=== PATIENT | male | born 1955 ===

== ENCOUNTER 2017-06-04 06:10 | Day surgery (SDC) | payer BC ==
[2017-05-25 09:50] VITALS: BMI 39.5
--- NOTE | 2017-06-02 07:06 | HP ---
REASON FOR ADMISSION: Left heart catheterization, possible angioplasty, abnormal stress test and anteroseptal ischemia, ejection fraction of 63%. BRIEF CLINICAL HISTORY: This is a 61-year-old male with past medical history significant for obesity, body mass index 40 kg/m2, diabetes, hypertension, hyperlipidemia, history of non-STEMI and history of multiple stents, admitted electively for left heart cath and possible angioplasty. PAST MEDICAL HISTORY: Significant for multiple stents, non-STEMI, 07/16/2013, PTCA of LAD and then the patient had acute coronary syndrome, on 07/23/2015 PTCA of RCA was done. Repeat catheterization on 11/17/2015 after ACS monitored, medical treatment recommended. PREVIOUS CARDIAC WORKUP: As follows: The patient had a recent stress test dated 05/11/2017 that showed abnormal myocardial perfusion study, ejection fraction 67%, apical anteroseptal reversible ischemia. The patient had echocardiography on 07/21/2015 that showed normal ejection fraction 50% to 55%, [id number]-rd-[id number] hypokinesis of anterior wall, no aortic stenosis, mild mitral regurgitation, trace tricuspid regurgitation, RV systolic pressure of 24. Last catheterization was on 11/22/2015 that showed nonobstructive coronary artery disease limited in the in mid circumflex diffusely 55%, but no focal flow-limiting stenosis noted. Patent stent in mid LAD and patent stent in mid RCA noted, preserved LV function ejection fraction of 60% to 65%. Prior to that, the patient had, after non-STEMI dated 07/22/2013, PTCA of LAD was done. After that, the patient admitted with acute coronary syndrome on 07/22/2015, mid RCA stent was done. OTHER MEDICAL CONDITION: Diabetes, hypertension, hyperlipidemia and obesity. CURRENT MEDICATIONS: The patient is taking aspirin 81 mg daily, valsartan 320 mg daily, metoprolol 50 mg, metformin 1 g, glipizide 10, clopidogrel and Lipitor 80 mg daily. REVIEW OF SYSTEMS: As per HPI. PHYSICAL EXAMINATION: As follows: VITAL SIGNS: Temperature afebrile, heart rate 60, blood pressure 130/80, height is 5 feet 8 inches, weight of the patient 260, body mass index 39.5 kg/m2. HEENT: PERRLA intact. NECK: Supple. No carotid bruits. No thyromegaly. CHEST: Clear to auscultation. HEART: S1 and S2 regular. ABDOMEN: Soft. EXTREMITIES: Clubbing and cyanosis negative. LABORATORY DATA: Not available. IMPRESSION AND PLAN: Abnormal stress test, diabetes, hypertension, hyperlipidemia, history of coronary disease, history of multiple stents LAD after acute coronary syndrome, [id number] myocardial infarction on 07/22/2013, history of PTCA of RCA on 07/23/2015. Recent stress test is abnormal. The patient is scheduled for elective cardiac catheterization and possible angioplasty. We will load with aspirin and Plavix. The patient agreed. We will proceed for cardiac catheterization. Further recommendation after the cardiac catheterization. Thank you Dr. Keith for providing us the opportunity in taking care of the patient, Ab Barkley. I will follow with you. Sha Melvin MD
[2017-06-04] MEDS ORDERED: Phenylephrine 10 mg/ml Inj ONE (06:48)
[2017-06-04] MEDS ORDERED: Iodixanol 320 MG/ML 200 ML BOTTLE IV ONE (06:48)
[2017-06-04] MEDS ORDERED: Lidocaine 2% Inj (20ml) ONE (06:48)
[2017-06-04] MEDS ORDERED: Iodixanol 320 MG/ML 100 ML BOTTLE IV ONE (06:48)
[2017-06-04] MEDS ORDERED: Iohexol 350mgl/ml 50 ML ONE (06:48)
[2017-06-04] MEDS ORDERED: Nitroglycerin 50mg in D5W 50 MG/250 ML BOTTLE IV ONE (06:49)
[2017-06-04 06:52] LABS: BASO # 0.07 K/mm3 (0.0-2.0); BASO % 1.1 % (0.0-3.0); EOS # 0.2 (0.0-0.7); EOS % 3.6 % (1.5-5.0); GRAN # 3.87 (1.4-6.5); GRAN % 59.8 % (50.0-68.0); HEMATOCRIT 42.8 % (42.0-52.0); LYMPH # 1.7 (1.2-3.4); LYMPH % 26.7 % (22.0-35.0); MEAN CELL VOLUME 79.1 fl (80.0-105.0); MEAN CORPUSCULAR HEMOGLOBIN 25.5 pg (25.0-35.0); MEAN CORPUSCULAR HGB CONC 32.2 g/dl (31.0-37.0); MEAN PLATELET VOLUME 10.8 fl (7.0-11.0); MONO # 0.6 (0.1-0.6); MONO % 8.8 % (1.0-6.0); RED CELL DISTRIBUTION WIDTH 15.1 % (11.5-14.5); WHITE BLOOD COUNT 6.5 10^3/ul (4.5-11.0)
[2017-06-04 06:59] LABS: PARTIAL THROMBOPLASTIN TIME 27.7 Seconds (23.7-30.8)
[2017-06-04] MEDS ORDERED: Midazolam 2 MG/2 ML VIAL ONE ×2 (07:02→08:11)
[2017-06-04 07:18] LABS: BLOOD UREA NITROGEN 13 mg/dL (7-21); CALCIUM 9.1 mg/dL (8.4-10.5); CARBON DIOXIDE 26 mmol/L (21-33); CHLORIDE 105 mmol/L (95-110); CHOLESTEROL 95 mg/dL (130-200); GFR AFRICAN-AMERICAN > 60; GLUCOSE,RANDOM 248 mg/dL (70-110); SODIUM 142 mmol/L (132-148)
[2017-06-04] MEDS ORDERED: Sodium Chloride 0.9% 1,000 ML IV SCH (09:00)
[2017-06-04 09:20] VITALS: TEMP 97.5; O2SAT 99
[2017-06-04 14:15] VITALS: RESP 17
[2017-06-04 14:16] VITALS: BP 134/70; PULSE 68
--- NOTE | 2017-06-04 15:09 | CARD ---
APPROVED REPORT EKG Measurement Heart [id number] [place] [id number] <Conclusion> Sinus bradycardia Left anterior Mane-Block. Right bundle branch block
--- NOTE | 2017-06-04 17:07 | CARD ---
APPROVED REPORT Procedure(s) performed: Left Heart Catheterization HISTORY The patient is a 61 year-old male with a history of : previous AL (> 7 days), most recent EF: 63%. (EF Method: RADIONUCLIDE), previous CHF, diabetes mellitus with oral treatment , previous diagnostic cath, previous PCI (The PCI date was 07/23/2015), hypertension , dyslipidemia , Had PTCA of LAD in 2012 and RCA 2014, had abnormal stress test . INDICATION The indication(s) include : positive stress test. CASE TECHNIQUE The patient was brought electively to the Cardiac Catheterization Laboratory in a fasting state and was prepped and draped in a sterile manner. The right femoral groin was infiltrated with 2% Lidocaine subcutaneous anesthesia. A 6 Fr x 11 cm Niyah sheath was inserted into the right femoral artery without difficulty. Coronary angiography was performed using coronary diagnostic catheters. The left coronary system was accessed and visualized with a Diagnostic ,6 Fr JL 4 catheter. The right coronary system was accessed and visualized with a Diagnostic ,6 Fr JR 4 catheter. The left ventricle was accessed and visualized with a 6 Fr Pigtail catheter. Left ventricular/Aortic Valve gradient assessed on pullback. Left ventriculogram was performed in ZHU projection. The patient tolerated the procedure well and there were no complications associated with the procedure. Vessel Analysis The patient's coronary anatomy is right dominant. The left main coronary artery is a large size vessel with diffuse calcification noted throughout this vessel and without significant stenosis. The left main trifurcates to the left anterior descending, circumflex, and ramus. The left anterior descending artery is a medium size vessel with diffuse calcification noted throughout this vessel and without significant stenosis. Patent stent in Mid and distal RCA There is a 55% stenosis in the mid segment. The first diagonal branch is a medium size vessel with diffuse calcification noted throughout this vessel and without significant stenosis. The circumflex artery is a small size vessel with diffuse calcification noted throughout this vessel and without significant stenosis. There is a 40% stenosis in the mid segment. The first obtuse marginal branch is a small size vessel with diffuse calcification noted throughout this vessel and without significant stenosis. The ramus intermedius artery is a medium size vessel with diffuse calcification noted throughout this vessel and without significant stenosis. The right coronary artery is a large size vessel with diffuse calcification noted throughout this vessel and without significant stenosis. Patent stent noted in mid segment The right posterior descending artery is a large size vessel with diffuse calcification noted throughout this vessel and without significant stenosis. The right posterolateral branch is a medium size vessel with diffuse calcification noted throughout this vessel and without significant stenosis. Left Ventricle The left ventricle is normal in size with normal contractility. There was no cardiomyopathy. The left ventricular ejection fraction is estimated to be 55-60%. The left ventricular end diastolic pressure is 25-30 mmHg. with respiratory variation There was no gradient across the aortic valve upon pullback. Conclusion Non Obstructive CAD Patent stents in MId and Distal LAD Mid LAD has 55% stenosis in between two stents. Patent stent in Mid RCA. Moderate Disease in Cx , small calibre vessel Preserved Lv Fx. EF-55-60%, EDP-25-30 with respiratory variation. Recommendations Cardiac Rehabilitation Referral Aggressive Medical TherapyCardiac Risk Reduction Program Weight Loss Reduction Program Cc; Dr. Keith.
== END 2017-06-04 14:00 | disposition home or self-care (01) ==
LOC: CATH 06:10
PROVIDERS: ATTEND Internal Medicine Cardiovascular Disease
DX: I25.10 Atherosclerotic heart disease of native coronary artery without angina pectoris (principal); I50.9 Heart failure, unspecified; E11.9 Type 2 diabetes mellitus without complications; Z95.5 Presence of coronary angioplasty implant and graft; I10 Essential (primary) hypertension; E78.5 Hyperlipidemia, unspecified; R94.39 Abnormal result of other cardiovascular function study; I25.9 Chronic ischemic heart disease, unspecified; E66.9 Obesity, unspecified; Z68.41 Body mass index [BMI] 40.0-44.9, adult; I08.1 Rheumatic disorders of both mitral and tricuspid valves; I25.2 Old myocardial infarction
CPT/HCPCS: 36415; 80048; 80061; 85025; 85610; 85730; 86850; 86900; 93005; 93458; 99152; C1760; C1769; C1887; C2629; J0360; J1644 ×2; J1940; J2250; J3010; J7040 ×2; Q9967

== ENCOUNTER 2018-01-28 08:32 | Observation (INO) | payer MEDICAID ==
[2018-01-28 08:44] VITALS: BMI 40.3
--- NOTE | 2018-01-28 09:13 | ED PDOC ---
Arrival/HPI - General Chief Complaint: Chest Pain Time Seen by Provider: 01/28/18 08:52 Historian: Patient - History of Present Illness Narrative History of Present Illness (Text): 01/28/18 09:07 A 62 year old male, whose past medical history includes diabetes, hypertension, hyperlipidemia, and multiple cardiac stents on Aspirin and Plavix, presents to the emergency department complaining of non-radiating midsternal chest pain since 05:30 this morning. Patient describes the pain as a tightening sensation. He also reports associated palpitations. On evaluation, patient is asymptomatic. Patient denies any fever, chills, nausea, vomiting, diarrhea, abdominal pain, shortness of breath, dyspnea on exertion, cough, headache, dizziness, lightheadedness or any other complaints. PMD: Sagar Finished Carpet Inspector: Dr. Melvin Time/Duration: Other (05:30 this morning) Symptom Course: Resolved (currently) Quality: Tightness Context: Home Past Medical History - Provider Review Nursing Documentation Reviewed: Yes - Infectious Disease Hx of Infectious Diseases: None - Tetanus Immunization Tetanus Immunization: Unknown - Cardiac Hx Cardiac Disorders: Yes Hx [place]: Yes Hx Hypertension: Yes Hx Pacemaker: No - Pulmonary Hx Respiratory Disorders: No - Neurological Hx Paralysis: No - HEENT Hx HEENT Disorder: No - Renal Hx Renal Disorder: No - Endocrine/Metabolic Hx Diabetes Mellitus Type 2: Yes - Hematological/Oncological Hx Blood Transfusions: No Hx Blood Transfusion Reaction: No - Integumentary Hx Dermatological Disorder: No - Musculoskeletal/Rheumatological Hx Musculoskeletal Disorders: No - Gastrointestinal Hx Gastrointestinal Disorders: No - Genitourinary/Gynecological Hx Genitourinary Disorders: No - Psychiatric Hx Emotional Abuse: No Hx Physical Abuse: No Hx Substance Use: No - Surgical History Hx Cardiac Catheterization: Yes Hx Coronary Stent: Yes (x2) - Anesthesia Hx Anesthesia Reactions: No Hx Malignant Hyperthermia: No - Suicidal Assessment Feels Threatened In Home Enviroment: No Family/Social History - Physician Review Nursing Documentation Reviewed: Yes Family/Social History: No Known Family HX Smoking Status: Former Smoker Hx Alcohol Use: No Hx Substance Use: No Hx Substance Use Treatment: No Allergies/Home Meds Allergies/Adverse Reactions: Allergies No Known Allergies Allergy (Verified 01/28/18 08:55) Home Medications: Home Meds Medication Instructions Recorded Confirmed GlipiZIDE [Glucotrol] 10 mg PO BID 07/12/13 01/28/18 Pantoprazole [Protonix EC Tab] 40 mg PO DAILY 02/13/14 01/28/18 Clopidogrel [Plavix] 75 mg PO DAILY 07/22/15 01/28/18 Metformin HCl 1,000 mg PO DAILY 07/22/15 01/28/18 Metoprolol Tartrate [Lopressor] 50 mg PO DAILY 07/22/15 01/28/18 Valsartan/Hydrochlorothiazide 1 tab PO DAILY 07/22/15 01/28/18 [Valsartan-Hctz 320-25 mg Tab] Dapagliflozin/Metformin HCl 1 each PO DAILY 05/14/17 01/28/18 [Xigduo Xr 5 mg-1,000 mg Tablet] Aspirin [Ecotrin] 81 mg PO DAILY 05/25/17 01/28/18 Review of Systems - Physician Review All systems were reviewed & negative as marked: Yes - Review of Systems Constitutional: absent: Fevers, Night Sweats Respiratory: absent: SOB, Cough Cardiovascular: Chest Pain, Palpitations. absent: GARCIA Gastrointestinal: absent: Abdominal Pain, Diarrhea, Nausea, Vomiting Neurological: absent: Headache, Dizziness (lightheadedness) Physical Exam Vital Signs Reviewed: Yes Vital Signs Temp Pulse Resp BP Pulse Ox 01/28/18 11:34 89 18 120/75 96 01/28/18 10:15 87 18 146/74 97 01/28/18 08:43 98.7 F 105 H 19 158/89 H 97 Temperature: Afebrile Blood Pressure: Hypertensive Pulse: Tachycardic Respiratory Rate: Normal Appearance: Positive for: Well-Appearing, Non-Toxic, Comfortable Pain Distress: None Mental Status: Positive for: Alert and Oriented X 3 - Systems Exam Head: Present: Atraumatic, Normocephalic Pupils: Present: PERRL Extroacular Muscles: Present: EOMI Conjunctiva: Present: Normal Mouth: Present: Moist Mucous Membranes Neck: Present: Normal Range of Motion. No: JVD Respiratory/Chest: Present: Clear to Auscultation, Good Air Exchange. No: Respiratory Distress, Accessory Muscle Use, Tender to Palpation Cardiovascular: Present: Regular Rate and Rhythm, Normal S1, S2. No: Murmurs Abdomen: Present: Normal Bowel Sounds. No: Tenderness, Distention, Peritoneal Signs Back: Present: Normal Inspection Upper Extremity: Present: Normal Inspection, NORMAL PULSES. No: Cyanosis, Edema Lower Extremity: Present: Normal Inspection, NORMAL PULSES. No: Edema, CALF TENDERNESS Neurological: Present: GCS=15, CN II-XII Intact, Speech Normal Skin: Present: Warm, Dry, Normal Color. No: Rashes Psychiatric: Present: Alert, Oriented x 3, Normal Insight, Normal Concentration Medical Decision Making ED Course and Treatment: 01/28/18 09:07 Impression: A 62 year old male with midsternal chest pain and palpitations, which have resolved. Differential Diagnosis included but are not limited to: Chest pain, rule out ACS Plan: -- Chest xray -- EKG -- Labs -- Urinalysis -- Aspirin -- Reassess and disposition Progress Notes: EKG shows sinus tachycardia at 109 BPM with RBBB, LBBB, with no changes compared to prior on 06/04/17. Interpreted by me. Report Date : 01/28/2018 09:45:10 Procedure: Chest xray Dictator : Edgar Sweet MD IMPRESSION: No active disease. Patient's symptoms improved but still having symptoms. Case was discussed with Dr. Keith for telemetry observation with. Dr. Melvin on board for cardiology. - Lab Interpretations Lab Results: 01/28/18 08:50 01/28/18 08:50 Lab Results 01/28/18 09:21: Urine Color Yellow, Urine Appearance Clear, Urine pH 6.0, Ur Specific [place] 1.020, Urine Protein Negative, Urine Glucose (UA) Negative, Urine Ketones Trace H, Urine Blood Negative, Urine Nitrate Negative, Urine Bilirubin Negative, Urine Urobilinogen 0.2, Ur Leukocyte Esterase Large H, Urine RBC 0 - 2, Urine WBC 25 - 30, Urine Bacteria Few 01/28/18 08:50: Sodium 142, Potassium 3.6, Chloride 103, Carbon Dioxide 26, Anion Gap 17, BUN 15, Creatinine 0.6 L, Est GFR ( Amer) > 60, Est GFR ( Non-Af Amer) > 60, Random Glucose 194 H, Calcium 9.2, Magnesium 1.7, Total Bilirubin 0.9, AST 28, ALT 34, Alkaline Phosphatase 88, Lactate Dehydrogenase 524, Total Creatine Kinase 135, Troponin I 0.02, NT-Pro-B Natriuret Pep 58.1, Total Protein 7.5, Albumin 4.6, Globulin 2.9, Albumin/Globulin Ratio 1.5 01/28/18 08:50: PT 13.2 H, INR 1.14 H, APTT 29.4 01/28/18 08:50: WBC 12.9 H D, RBC 5.14, Hgb 13.5 L, Hct 40.1 L, MCV 78.0 L, MCH 26.3, MCHC 33.7, RDW 14.3, Plt Count 239, MPV 10.5, Gran % 76.8 H, Lymph % (Auto ) 14.9 L, Crockett % (Auto) 7.0 H, Eos % (Auto) 1.0 L, Baso % (Auto) 0.3, Gran # 9.87 H, Lymph # (Auto) 1.9, Crockett # (Auto) 0.9 H, Eos # (Auto) 0.1, Baso # (Auto ) 0.04 I have reviewed the lab results: Yes - RAD Interpretation Radiology Orders: 01/28/18 09:07 CHEST PORTABLE [RAD] Stat - Medication Orders Current Medication Orders: Discontinued Medications Aspirin (Aspirin Chewable) 162 mg PO STAT STA Stop: 01/28/18 09:17 Last Admin: 01/28/18 09:25 Dose: 162 mg Cephalexin Monohydrate (Keflex) 500 mg PO STAT STA PRN Reason: Protocol Stop: 01/28/18 10:42 Last Admin: 01/28/18 10:59 Dose: 500 mg - Scribe Statement The provider has reviewed the documentation as recorded by the Darryl Orr Provider Scribe Attestation: All medical record entries made by the Darryl were at my direction and personally dictated by me. I have reviewed the chart and agree that the record accurately reflects my personal performance of the history, physical exam, medical decision making, and the department course for this patient. I have also personally directed, reviewed, and agree with the discharge instructions and disposition. Disposition/Present on Arrival - Present on Arrival Any Indicators Present on Arrival: Yes History of DVT/PE: No History of Uncontrolled Diabetes: Yes Urinary Catheter: No History of Decub. Ulcer: No History Surgical Site Infection Following: None - Disposition Have Diagnosis and Disposition been Completed?: Yes Diagnosis: Chest pain Disposition Time: 10:40 Patient Plan: Admission Condition: FAIR
[2018-01-28 09:25] LABS: BASO # 0.04 K/mm3 (0.0-2.0); BASO % 0.3 % (0.0-3.0); EOS # 0.1 (0.0-0.7); GRAN # 9.87 (1.4-6.5); GRAN % 76.8 % (50.0-68.0); HEMOGLOBIN 13.5 g/dL (14.0-18.0); LYMPH # 1.9 (1.2-3.4); LYMPH % 14.9 % (22.0-35.0); MEAN CORPUSCULAR HEMOGLOBIN 26.3 pg (25.0-35.0); MEAN CORPUSCULAR HGB CONC 33.7 g/dl (31.0-37.0); MEAN PLATELET VOLUME 10.5 fl (7.0-11.0); MONO # 0.9 (0.1-0.6); RBC 5.14 10^6/uL (3.5-6.1); RED CELL DISTRIBUTION WIDTH 14.3 % (11.5-14.5); WHITE BLOOD COUNT 12.9 10^3/ul (4.5-11.0)
[2018-01-28 09:30] LABS: ALB/GLOB RATIO 1.5 (1.1-1.8); ALBUMIN 4.6 g/dL (3.0-4.8); ALT/SGPT 34 U/L (7-56); AST/SGOT 28 U/L (17-59); BLOOD UREA NITROGEN 15 mg/dL (7-21); CALCIUM 9.2 mg/dL (8.4-10.5); GFR AFRICAN-AMERICAN > 60; GFR NON-AFRICAN AMERICAN > 60
[2018-01-28 09:31] LABS: URINE BILIRUBIN NEGATIVE (NEGATIVE); URINE BLOOD NEGATIVE (NEGATIVE); URINE GLUCOSE (UA) NEGATIVE (NEGATIVE); URINE LEUKOCYTE ESTERASE LARGE Leu/uL (NEGATIVE); URINE PROTEIN NEGATIVE mg/dL (<30 mg/dL); URINE UROBILINOGEN 0.2 E.U./dL (<1 E.U./dL)
[2018-01-28 09:32] LABS: URINE APPEARANCE CLEAR (CLEAR); URINE COLOR YELLOW (YELLOW)
[2018-01-28 09:36] LABS: INR 1.14 (0.93-1.08); PARTIAL THROMBOPLASTIN TIME 29.4 Seconds (25.1-36.5); PROTHROMBIN TIME 13.2 SECONDS (9.4-12.5)
[2018-01-28 09:42] LABS: B-TYPE NATRIURETIC PEPTIDE 58.1 pg/mL (0-450); TROPONIN I 0.02 ng/mL
--- NOTE | 2018-01-28 09:46 | RAD ---
HISTORY: chest pain COMPARISON: 11/20/2015 FINDINGS: LUNGS: No active pulmonary disease. PLEURA: No significant pleural effusion identified, no pneumothorax apparent. CARDIOVASCULAR: Normal. OSSEOUS STRUCTURES: No significant abnormalities. VISUALIZED UPPER ABDOMEN: Normal. OTHER FINDINGS: None. IMPRESSION: No active disease.
[2018-01-28 09:52] LABS: URINE BACTERIA FEW (NEG); URINE RBC 0 - 2 /hpf (0-2); URINE WBC 25 - 30 /hpf (0-6)
[2018-01-28 10:17] VITALS: RESP 18
--- NOTE | 2018-01-28 12:49 | CARD ---
APPROVED REPORT EKG Measurement Heart [id number] [place] 184P-3 [id number] <Conclusion> Sinus tachycardia Left axis deviation/LAHB Right bundle branch block STTW changes
[2018-01-28 16:36] LABS: TROPONIN I < 0.01 ng/mL
[2018-01-28] MEDS ORDERED: Azithromycin 500MG/NS 250ml 500 MG/250 ML BAG IVPB SCH (17:00)
--- NOTE | 2018-01-28 17:05 | CT ---
PROCEDURE: CT Chest without contrast HISTORY: R/o pneumonia COMPARISON: 01/28/2018 single-view chest TECHNIQUE: Contiguous axial images were obtained through the chest without intravenous contrast enhancement. Sagittal and coronal reconstructions were performed. Radiation dose (DLP): 1197.22 mGy-cm. This CT exam was performed using one or more of the following dose reduction techniques: Automated exposure control, adjustment of the mA and/or kV according to patient size, and/or use of iterative reconstruction technique. FINDINGS: LUNGS: Clear lungs. Visualized airway clear. MEDIASTINUM: Unremarkable thoracic aorta. No aneurysm. Normal sized heart. Main pulmonary artery unremarkable. No vascular congestion. No lymphadenopathy. PLEURA: No pleural fluid. No pneumothorax. BONES: No fracture. No destructive lesion. UPPER ABDOMEN: Grossly unremarkable. Incidental finding(s): Bilateral renal cysts the largest in the right kidney measures 4.6 x 5.5 cm OTHER FINDINGS: None. IMPRESSION: No active pulmonary disease. No pulmonary nodules, masses, infiltrates.
[2018-01-28] MEDS ORDERED: Pneumococcal 23-Valent Vaccine IM ONE (17:32)
[2018-01-28] MEDS: Insulin Reg-LOW-Coverage SC SCH ×2 (18:08→21:28)
--- NOTE | 2018-01-29 04:10 | CON ---
DATE: 01/28/2018 REASON FOR CONSULTATION: Chest pain, cardiac evaluation, history of coronary artery disease, multiple stents. BRIEF CLINICAL HISTORY: This is a 62-year-old obese male with past medical history of diabetes, hypertension, hyperlipidemia, multiple stents, on aspirin and Plavix, came to the emergency room with complaint of tightness in the chest. Patient woke up and heart rate was at 120. Denies any prior episode of chest pain, shortness of breath or dyspnea on exertion. PAST MEDICAL HISTORY: Significant for multiple stents, non-STEMI, 07/16/2013, PTCA of LAD and then patient had acute coronary syndrome, on 07/21/2015, PTCA of RCA was done. Repeat catheterization on 11/17/2015 after ACS monitored, patient treated medically after patient was admitted for treatment. Repeat stress test was done on 07/21/2017 that shows abnormal stress test, anteroseptal ischemia dated 05/01/2017. On 05/01/2017, the patient underwent cardiac catheterization. RECENT CARDIAC WORKUP: As follows, patient had cardiac catheterization on 06/04/2017, after stress test dated 05/11/2017, had abnormal myocardial perfusion study, ejection fraction 67%, apical and anterolateral ischemia. The patient underwent cardiac cath on 06/04/2017 that showed nonobstructive coronary artery disease, a patent stent mid LAD and distal LAD, mild LAD 50% stenosis between the two stent, patent stent in mid RCA, moderate circumflex, small caliber vessel, preserved LV function ejection fraction 55% to 60% , EDP within 25 to 30 with inspiratory variation dated 06/04/2017. Patient had last echocardiogram on 07/21/2015 that shows normal ejection fraction 50 to 55%, [id number]-[id number]-[id number] hypokinesis of anterior wall, no aortic stenosis, mild mitral regurgitation, trace tricuspid regurgitation, RV systolic pressure of 24. CURRENT MEDICATIONS: Patient at home taking valsartan and hydrochlorothiazide 320/25 mg daily, Protonix 40 mg daily, metoprolol tartarate 25 mg p.o. daily, metformin 1 g twice, glipizide 10 mg b.i.d., clopidogrel 75 mg daily, Lipitor 80 mg, aspirin 81 mg daily. REVIEW OF SYSTEMS: As per HPI. SOCIAL HISTORY: . Denies any history of alcohol abuse. He used to work in recently retired. PHYSICAL EXAMINATION: As follows; VITAL SIGNS: Temperature 98.7, heart rate 105, blood pressure 157/89. HEENT: PERRLA. Extraocular muscles intact. NECK: Supple. No carotid bruit or thyromegaly. CHEST: Clear to auscultation. HEART: S1 and S2 regular. ABDOMEN: Soft. EXTREMITIES: Clubbing and cyanosis negative. LABORATORY DATA: Blood workup as follows; WBC 12.9, hemoglobin 13, hematocrit 40.1, platelet count 239. Chemistry shows sodium 140, potassium 3.6, chloride 103, carbon dioxide 26, anion gap of 17 , BUN 15, creatinine 0.6. Troponin 0.02. EKG shows normal sinus, right bundle branch block, left anterior hemiblock, tachycardia heart rate is 109. IMPRESSION: Elevated WBC, woke up with some chest tightness and tachycardiac so far no chest pain, so far troponin remains negative, history of multiple stent in the past, recently catheterization on 06/04/2017 with patent stent, medical treatment. RECOMMENDATION: Followup serial CPK, treat as a unstable angina. We will give Lovenox, beta sixto. Continue aspirin, Plavix. We will get CAT scan because of elevated WBC to rule out any pneumonia. Chest x-ray consistent with questionable history of right lower lobe pneumonia. Further recommendation of the CAT scan, follow up serial CPK, troponin, lipid profile, TSH. We will follow with you. We will get echo to assess LV function. Thank you Dr. Keith for providing us the opportunity in taking care of the patient, Matt Barkley. Sha Melvin MD
[2018-01-29 05:36] VITALS: O2SAT 97
[2018-01-29 07:03] LABS: BASO # 0.05 K/mm3 (0.0-2.0); BASO % 0.5 % (0.0-3.0); EOS # 0.2 (0.0-0.7); EOS % 2.3 % (1.5-5.0); GRAN # 6.4 (1.4-6.5); GRAN % 68.1 % (50.0-68.0); HEMOGLOBIN 12.6 g/dL (14.0-18.0); LYMPH # 1.8 (1.2-3.4); LYMPH % 19.5 % (22.0-35.0); MEAN CELL VOLUME 78.4 fl (80.0-105.0); MEAN CORPUSCULAR HGB CONC 33.2 g/dl (31.0-37.0); MEAN PLATELET VOLUME 10.4 fl (7.0-11.0); MONO # 0.9 (0.1-0.6); MONO % 9.6 % (1.0-6.0); RBC 4.85 10^6/uL (3.5-6.1); RED CELL DISTRIBUTION WIDTH 14.8 % (11.5-14.5); WHITE BLOOD COUNT 9.4 10^3/ul (4.5-11.0)
[2018-01-29 07:29] LABS: TROPONIN I 0.02 ng/mL
[2018-01-29 07:38] LABS: ALB/GLOB RATIO 1.4 (1.1-1.8); ALBUMIN 3.9 g/dL (3.0-4.8); ALT/SGPT 32 U/L (7-56); AST/SGOT 26 U/L (17-59); BLOOD UREA NITROGEN 12 mg/dL (7-21); CALCIUM 8.7 mg/dL (8.4-10.5); GFR AFRICAN-AMERICAN > 60; GFR NON-AFRICAN AMERICAN > 60; HDL CHOLESTEROL 33 mg/dL (29-60); LDL CHOLESTEROL 44 mg/dL (0-129)
[2018-01-29] MEDS: Insulin Reg-LOW-Coverage SC SCH ×2 (07:55→12:26)
[2018-01-29] MEDS ORDERED: Potassium Chloride 20 mEq ER Tab PO ONE (09:54)
[2018-01-29] MEDS ORDERED: Non Formulary Medication (Valsartan/Hydrochlorothiazide [Valsartan-Hctz 320-25 Mg Tab] 1 T PO SCH (10:00)
[2018-01-29 12:19] VITALS: BP 136/80; PULSE 58; TEMP 97.8
--- NOTE | 2018-01-29 14:45 | HP ---
HISTORY OF PRESENT ILLNESS: The patient is a 62-year-old [place] male with history of insulin-dependent diabetes mellitus; morbid obesity; hypertension; CAD, status post multiple stents; IN in the past. Admitted to the hospital with palpitations, rapid tachycardia and some chest pressure. The patient has been seen in the past by Dr. Melvin. He has had stents over the last several years. Blood sugars have been under better control recently. The patient denies any nausea, vomiting, radiation of pain, diaphoresis, dizziness or lightheadedness. PHYSICAL EXAMINATION: GENERAL: Shows a well-developed, obese male in no apparent distress the following morning. HEENT: Essentially within normal limits. HEART: Regular sinus rhythm. No significant murmurs. CHEST: Clear to auscultation and percussion. ABDOMEN: Obese, but benign. EXTREMITIES: Without cyanosis, clubbing or edema. LABORATORY DATA: Reveal normal troponins. Positive pyuria and bacteriuria. The patient had received a dose of azithromycin intravenously, but developed last night. This was discontinued and the patient was started on Cipro. The patient's medications have been adjusted to control heart rate. The patient's two troponins are negative. We are waiting consultation of Dr. Melvin for final determination on this patient. IMPRESSION: A 62-year-old male with coronary artery disease, diabetes, urinary tract infection, presenting with tachycardia and chest pain. Rule out coronary artery disease, rule out acute coronary syndrome. Rule out arrhythmia. Gerardo Keith MD
--- NOTE | 2018-01-29 15:51 | PN ---
DATE: 01/29/2018 REASON FOR CONSULTATION: Chest pain, cardiac evaluation, history of coronary artery disease, multiple stents. SUBJECTIVE: The patient denies any further episode of chest pain, shortness of breath, or any palpitations. OBJECTIVE: GENERAL: Not in apparent distress. VITAL SIGNS: As follows, temperature afebrile, heart rate 65, blood pressure 157/81. HEENT: PERRLA. Extraocular muscles intact. NECK: Supple. No carotid bruits or thyromegaly. CHEST: Clear to auscultation. HEART: S1 and S2. Regular. ABDOMEN: Soft. EXTREMITIES: Clubbing and cyanosis negative. LABORATORY DATA: WBC 9.4, hemoglobin 12.6, hematocrit 38, platelet count 277. Chemistry shows sodium 140, potassium 3.6, chloride 105, carbon dioxide 29, anion gap of 13, BUN 12, creatinine 0.7. Troponin remains slightly at 0.02. IMPRESSION: A 62-year-old male with a past medical history significant as mentioned multiple stent in the past, admitted yesterday with complaint of tachycardia, heart rate fast at home and elevated WBC, some chest pain. CAT scan was negative for any infiltrates. Urine shows leukocyte esterase, positive large, possible urinary tract infection, elevated WBC, started on Zithromax for reaction with Cipro was started by Dr. Keith. Today, WBC came back to 9.4 from 12.9. No further episode of chest pain, shortness of breath or palpitation noted. Troponin remains negative suggestive of no evidence of acute myocardial infraction. The patient had a cardiac catheterization afterward the patent had stent, though history of multiple stent. Rest of the blood workup was essentially negative. RECOMMENDATIONS: We will get echo and possible discharge on Cipro. I explained to the patient if chest pain occurs, call us or come to the ER, consider cardiac catheterization, otherwise so far no evidence of acute UT or ischemia. In the interim, continue baseline medication including valsartan, aspirin, metformin, glipizide and metoprolol. Cipro was started. We will follow with you. Thank you, Dr. Keith, for providing us the opportunity in taking care of Matt Barkley. We will try to discuss with you and supplement potassium. Sha Melvin MD
--- NOTE | 2018-01-30 16:34 | CARD ---
APPROVED REPORT EXAM: Two-dimensional and M-mode echocardiogram with Doppler and color Doppler. INDICATION Chest Pain 2D DIMENSIONS Left Atrium (2D)3.8 (1.6-4.0cm)IVSd1.6 (0.7-1.1cm) LVDd5.4 (3.9-5.9cm)PWd1.4 (0.7-1.1cm) LVDs3.3 (2.5-4.0cm)FS (%) 39.6 % LVEF (%)69.6 (>50%) M-Mode DIMENSIONS Aortic Root2.50 (2.2-3.7cm)Aortic Cusp Exc.1.90 (1.5-2.0cm) Aortic Valve AoV Peak Ieugsnbj130.0cm/Korin Peak GR.14mmHg Mitral Valve MV E Mpkcwrbw88.9cm/sMV A Fizvtktl328.0cm/sE/A ratio0.6 TDI E/Lateral E'0.0E/Medial E'0.0 Tricuspid Valve TR Peak Usjyjiff559os/sRAP [id number] Peak Gr.8mmHg CSLG88ccBr LEFT VENTRICLE The left ventricle is normal size. There is mild to moderate concentric left ventricular hypertrophy. The left ventricular function is normal.EF-60-65% There is normal LV segmental wall motion. Transmitral Doppler flow pattern is Grade III-reversible restrictive diastolic dysfunction. No left ventricle thrombus noted on this study. There is no ventricular septal defect visualized. There is no left ventricular aneurysm. There is no mass noted in the left ventricle. RIGHT VENTRICLE The right ventricle is normal size. There is normal right ventricular wall thickness. The right ventricular systolic function is normal. ATRIA The left atrium is borderline dilated in Long axis The right atrium size is normal. The interatrial septum is intact with no evidence for an atrial septal defect. AORTIC VALVE The aortic valve is mildly thickened but opens well. The aortic valve is mildly to moderately sclerotic. No aortic regurgitation is present. There is no aortic valvular stenosis. There is no aortic valvular vegetation. MITRAL VALVE The mitral valve is thickened but opens well. Mitral regurgitation is trace. There is no mitral valve stenosis. There is no evidence of mitral valve prolapse. TRICUSPID VALVE The tricuspid valve leaflets are thickened , but open well. There is trace tricuspid regurgitation.RVSP_18 mmof Hg. There is no tricuspid valve stenosis. There is no tricuspid valve prolapse or vegetation. PULMONIC VALVE The pulmonic valve is mildly thickened. There is no pulmonic valvular regurgitation. There is no pulmonic valvular stenosis. GREAT VESSELS The aortic root is normal in size. The ascending aorta is normal in size. The pulmonary artery is normal. The IVC is normal in size and collapses >50% with inspiration. PERICARDIAL EFFUSION There is no pleural effusion. There is no pericardial effusion. <Conclusion> Normal chamber Size. EF-60-65% Trace MR/Tr RVSP-18 mmof hg. no vegetation noted.
== END 2018-01-29 16:07 | disposition home or self-care (01) ==
LOC: ED 08:32 → ERH 10:46 → 2RSO 17:36
PROVIDERS: ADMIT Internal Medicine; ATTEND Internal Medicine
DX: I25.110 Atherosclerotic heart disease of native coronary artery with unstable angina pectoris (principal); E11.9 Type 2 diabetes mellitus without complications; E66.9 Obesity, unspecified; E78.5 Hyperlipidemia, unspecified; I10 Essential (primary) hypertension; I25.2 Old myocardial infarction; N39.0 Urinary tract infection, site not specified; Z79.02 Long term (current) use of antithrombotics/antiplatelets; Z79.4 Long term (current) use of insulin; Z79.82 Long term (current) use of aspirin; Z95.5 Presence of coronary angioplasty implant and graft; R40.2412 Glasgow coma scale score 13-15, at arrival to emergency department; R00.0 Tachycardia, unspecified; I45.2 Bifascicular block; Z68.41 Body mass index [BMI] 40.0-44.9, adult
CPT/HCPCS: 36415; 71045; 71250; 80053; 80061; 81001; 82550; 82948; 83036; 83615; 83735; 83880; 84100; 84443; 84484; 85025; 85610; 85730; 87040; 87086; 93005; 93306; 99285; G0378; J0456